=== PATIENT | male | born 1960 | race Caucasian/White ===

== ENCOUNTER 2019-07-27 12:40 | Day surgery (SDC) | payer BC ==
[2019-07-19 17:03] VITALS: BMI 25.0
[2019-07-27] MEDS ORDERED: PROPOFOL 20 ML ONE ×4 (14:38→16:19)
[2019-07-27 17:39] VITALS: BP 124/80; PULSE 81; TEMP 98
--- NOTE | 2019-07-29 18:25 | PATH ---
Surgical Pathology Report Patient Name: LILI SILVESTRE [facility]. Rec. #: [id number] /Age/Gender: 1960 (Age: 59) / M Account: [id number] Location: [facility] Taken: 07/27/2019 Received: 07/27/2019 Reported: 07/29/2019 Physicians: Jina Rubin M.D. Specimen(s) Received POLYPECTOMY [facility] CECUM AND ASCENDING COLON Clinical History Screening Postoperative diagnosis: Colon polyp Final Diagnosis [facility] CECUM AND ASCENDING COLON POLYP, POLYPECTOMY: FRAGMENTS OF TUBULOVILLOUS ADENOMA. Electronically Signed Jesika Vega M.D. Gross Description Received in formalin labeled "hot snare polypectomy at [facility] cecum and ascending colon," is a 1.4 x 1.2 x 0.3 cm aggregate of traore, irregular to polypoid soft tissue fragments. The formalin is filtered and the specimen is entirely submitted in one cassette. 07/28/2019 saudi07/28/2019
== END 2019-07-27 17:39 | disposition home or self-care (01) ==
LOC: FASU-ENDO 12:40
PROVIDERS: ATTEND Internal Medicine Gastroenterology
PROC: 0DBK8ZX Excision of Ascending Colon, Via Natural or Artificial Opening Endoscopic, Diagnostic (ICD-10-PCS; principal; 2019-07-27 15:26)
DX: Z12.11 Encounter for screening for malignant neoplasm of colon (principal); D12.2 Benign neoplasm of ascending colon; K64.8 Other hemorrhoids
CPT/HCPCS: 88305-TC